=== PATIENT | male | born 1975 | race Caucasian/White ===

== ENCOUNTER 2017-12-16 00:42 | Emergency (ER) | payer OTHER ==
[~2017-12-16] VITALS: Ht 170.1 cm; Wt 88.0 kg
[2017-12-16] MEDS ORDERED: AMPHETAMINE/DEX30 MG PO (00:54)
[2017-12-16] MEDS ORDERED: HALDOL0.5 MG PO (00:54)
[2017-12-16] MEDS ORDERED: ADDERALL XR 3030 MG PO (00:54)
[2017-12-16] MEDS ORDERED: PAROXETINE HCL20 MG PO (00:54)
[2017-12-16] MEDS ORDERED: NEXIUM40 MG PO (00:55)
[2017-12-16] MEDS ORDERED: 'XANAX1 MG PO (00:55)
[2017-12-16] MEDS ORDERED: ZINC10 M4 PO (00:55)
[2017-12-16] MEDS ORDERED: MULTIVITAMINS1 EAC5 PO (00:55)
[2017-12-16 01:22] LABS: BASO % 0.3 % (0.0-1.0); EOS # 0.2 10*3/uL (0.0-0.4); EOS % 1.2 % (1.0-4.0); HEMATOCRIT 39.1 % (42.0-52.0); HEMOGLOBIN 14.1 g/dl (14.0-18.0); LYMPH # 3.1 10*3/uL (1.3-4.4); MEAN CELL VOLUME 83.4 fl (80.0-94.0); MEAN CORPUSCULAR HGB 30.1 pg (27.0-31.0); MEAN CORPUSCULAR HGB CONC 36.1 g/dl (33.0-37.0); MEAN PLATELET VOLUME 11.1 fl (9.6-12.3); MONO # 0.9 10*3/uL (0.1-1.0); MONO % 7.7 % (3.0-9.0); NEUT # 7.8 10*3/uL (2.3-7.9); NEUT % 64.5 % (47.0-73.0); PLATELET COUNT AUTOMATED 294 10*3/uL (130-400); RED BLOOD COUNT 4.69 10*6/uL (4.50-5.90); WHITE BLOOD COUNT 12.1 10*3/uL (4.8-10.8)
[2017-12-16] MEDS ORDERED: CEPHALEXIN500 M1 PO (01:30)
[2017-12-16 01:38] LABS: ALBUMIN 3.9 gm/dl (3.1-4.5); ALKALINE PHOSPHATASE 100 U/L (45-117); BUN 13 mg/dl (7-24); CHLORIDE 100 mmol/L (98-107); CREATININE 0.94 mg/dL (0.70-1.30); POTASSIUM 3.7 mmol/L (3.5-5.1); SGOT/AST 24 IU/L (3-35); SGPT/ALT 46 U/L (12-78); SODIUM 137 mmol/L (136-145)
[2017-12-16 01:39] LABS: TROPONIN I < 0.015 ng/ml (<0.045)
== END 2017-12-16 02:01 | disposition home or self-care (01) ==
LOC: ED 00:42
PROVIDERS: Nurse Practitioner Family
DX: L02.415 Cutaneous abscess of right lower limb (principal); Z88.2 Allergy status to sulfonamides; Z88.1 Allergy status to other antibiotic agents; Z79.899 Other long term (current) drug therapy

== ENCOUNTER 2017-12-25 19:04 | Emergency (ER) | payer OTHER ==
[~2017-12-25] VITALS: Ht 170.1 cm; Wt 88.0 kg
[~2017-12-25 19:04] MED LIST: 'XANAX1 MG PO; ADDERALL XR 3030 MG PO; AMPHETAMINE/DEX30 MG PO; CEPHALEXIN500 M1 PO; HALDOL0.5 MG PO; MULTIVITAMINS1 EAC5 PO; NEXIUM40 MG PO; PAROXETINE HCL20 MG PO; ZINC10 M4 PO
[2017-12-25] MEDS ORDERED: PROAIR HFA8.5 GM INH (21:29)
[2017-12-25] MEDS ORDERED: ZITHROMAX250 MG PO (21:29)
== END 2017-12-25 19:36 | disposition home or self-care (01) ==
LOC: ED 19:04
DX: J20.9 Acute bronchitis, unspecified (principal); J45.909 Unspecified asthma, uncomplicated; Z98.890 Other specified postprocedural states; Z79.899 Other long term (current) drug therapy; Z88.2 Allergy status to sulfonamides; Z88.1 Allergy status to other antibiotic agents; Z88.8 Allergy status to other drugs, medicaments and biological substances

== ENCOUNTER 2020-08-03 02:58 | Emergency (ER) | payer OTHER ==
[~2020-08-03] VITALS: Ht 170.1 cm; Wt 99.8 kg
[~2020-08-03 02:58] MED LIST changes: +PROAIR HFA8.5 GM INH; +ZITHROMAX250 MG PO
== END 2020-08-03 04:36 | disposition home or self-care (01) ==
LOC: ED 02:58
DX: J20.9 Acute bronchitis, unspecified (principal); Z88.2 Allergy status to sulfonamides; Z88.1 Allergy status to other antibiotic agents; Z79.899 Other long term (current) drug therapy

== ENCOUNTER 2024-03-14 02:04 | Emergency (ER) | payer OTHER ==
[~2024-03-14] VITALS: Ht 170.1 cm; Wt 104.3 kg
== END 2024-03-14 04:40 | disposition home or self-care (01) ==
LOC: ED 02:04
DX: S20.211A Contusion of right front wall of thorax, initial encounter (principal); F41.9 Anxiety disorder, unspecified; F32.A Depression, unspecified; I10 Essential (primary) hypertension; K21.9 Gastro-esophageal reflux disease without esophagitis; F90.9 Attention-deficit hyperactivity disorder, unspecified type; Z88.2 Allergy status to sulfonamides; Z88.8 Allergy status to other drugs, medicaments and biological substances; Z98.890 Other specified postprocedural states; W01.0XXA Fall on same level from slipping, tripping and stumbling without subsequent striking against object, initial encounter; Y93.89 Activity, other specified; Y92.89 Other specified places as the place of occurrence of the external cause; Y99.8 Other external cause status

== ENCOUNTER 2025-07-01 15:55 | Emergency (ER) | payer OTHER ==
[~2025-07-01] VITALS: Ht 170.1 cm; Wt 98.0 kg
[2025-07-01] MEDS ORDERED: 'CLONIDINE0.1 MG PO (16:38)
[2025-07-01 18:03] LABS: BUN 8 mg/dl (9-23)
[2025-07-01 18:20] LABS: BASO # 0.0 10*3/uL (0.0-0.1); BASO % 0.4 % (0.0-1.0); EOS # 0.0 10*3/uL (0.0-0.4); EOS % 0.5 % (1.0-4.0); MEAN CELL VOLUME 84.0 fl (80.0-94.0); MEAN CORPUSCULAR HGB 28.2 pg (27.0-31.0); MEAN PLATELET VOLUME 11.5 fl (9.6-12.3); MONO # 0.5 10*3/uL (0.1-1.0); MONO % 6.1 % (3.0-9.0); NEUT # 5.3 10*3/uL (2.3-7.9); NEUT % 66.1 % (47.0-73.0); NUCLEATED RED BLOOD CELL 0.0 % (0.0-0.0); NUCLEATED RED BLOOD CELL 0.0 10*3/uL (0.0-0.0); PLATELET COUNT AUTOMATED 276 10*3/uL (130-400); RED CELL DISTRI WIDTH 12.7 % (0-14.5)
== END 2025-07-01 19:15 | disposition home or self-care (01) ==
LOC: ED 15:55
PROVIDERS: Nurse Practitioner Family
DX: I10 Essential (primary) hypertension (principal); F41.9 Anxiety disorder, unspecified; Z76.0 Encounter for issue of repeat prescription; F98.8 Other specified behavioral and emotional disorders with onset usually occurring in childhood and adolescence; Z88.2 Allergy status to sulfonamides; Z79.899 Other long term (current) drug therapy; Z98.890 Other specified postprocedural states

== ENCOUNTER → 2025-09-26 | Outpatient (CLI) | payer OTHER ==
[~2025-09-26] MED LIST changes: +'CLONIDINE0.1 MG PO
[2025-09-26 12:54] LABS: BASO # 0.0 10*3/uL (0.0-0.1); BASO % 0.4 % (0.0-1.0); EOS # 0.1 10*3/uL (0.0-0.4); EOS % 1.6 % (1.0-4.0); MEAN CELL VOLUME 87.5 fl (80.0-94.0); MEAN CORPUSCULAR HGB 28.8 pg (27.0-31.0); MEAN PLATELET VOLUME 10.6 fl (9.6-12.3); MONO # 0.6 10*3/uL (0.1-1.0); MONO % 7.9 % (3.0-9.0); NEUT # 4.4 10*3/uL (2.3-7.9); NEUT % 59.8 % (47.0-73.0); NUCLEATED RED BLOOD CELL 0.0 % (0.0-0.0); NUCLEATED RED BLOOD CELL 0.0 10*3/uL (0.0-0.0); PLATELET COUNT AUTOMATED 284 10*3/uL (130-400); RED CELL DISTRI WIDTH 14.4 % (0-14.5)
[2025-09-26 13:55] LABS: BUN 21 mg/dl (9-23); SGPT/ALT 28 U/L (5-49)
== END | disposition home or self-care (01) ==
LOC: LAB 12:30 → US 13:00
PROVIDERS: Nurse Practitioner; ATTEND Urology
DX: N50.3 Cyst of epididymis (principal); N28.1 Cyst of kidney, acquired; N50.819 Testicular pain, unspecified; N52.9 Male erectile dysfunction, unspecified; D40.0 Neoplasm of uncertain behavior of prostate; N40.0 Benign prostatic hyperplasia without lower urinary tract symptoms

== ENCOUNTER → 2025-10-19 | Outpatient (CLI) | payer OTHER ==
[~2025-10-19] MED LIST changes: +GADOTERATE MEGLUMINE 10 MMOL/20 ML VIAL IV ONE
== END | disposition home or self-care (01) ==
LOC: MRI 12:30
PROVIDERS: ATTEND Urology
DX: M51.379 Other intervertebral disc degeneration, lumbosacral region without mention of lumbar back pain or lower extremity pain (principal); R93.811 Abnormal radiologic findings on diagnostic imaging of right testicle